=== PATIENT | male | born 1950 | race Hispanic/Latino ===

== ENCOUNTER 2018-10-08 10:00 | Inpatient (IN) | payer MEDICARE, BC | END 2018-10-14 17:00 | disposition home or self-care (01) | LOC: ED 10:00 → ERH 12:08 → ICU 13:19 ==

== ENCOUNTER 2018-10-19 09:43 | Emergency (ER) | payer MEDICARE | END 2018-10-19 11:56 | disposition home or self-care (01) | LOC: ED 09:43 ==

== ENCOUNTER 2018-11-25 13:51 | Inpatient (IN) | payer MEDICARE ==
[2018-11-25 13:52] VITALS: PULSE 143
[2018-11-25 14:12] VITALS: BMI 19.9
[2018-11-25 15:20] LABS: HEMOGLOBIN 7.7 g/dL (14.0-18.0); LYMPH # 0.5 (1.2-3.4); LYMPH % 6.6 % (22.0-35.0); MEAN CELL VOLUME 87.4 fl (80.0-105.0); MEAN CORPUSCULAR HGB CONC 30.9 g/dl (31.0-37.0); MEAN PLATELET VOLUME 7.8 fl (7.0-11.0); MONO # 0.5 (0.1-0.6); MONO % 6.6 % (1.0-6.0); RBC 2.85 10^6/uL (3.5-6.1); RED CELL DISTRIBUTION WIDTH 14.9 % (11.5-14.5); WHITE BLOOD COUNT 7.2 10^3/uL (4.5-11.0)
[2018-11-25 15:25] LABS: ALB/GLOB RATIO 0.9 (1.1-1.8); ALBUMIN 2.5 g/dL (3.0-4.8); ALT/SGPT 31 U/L (7-56); AST/SGOT 43 U/L (17-59); BLOOD UREA NITROGEN 22 mg/dL (7-21); CALCIUM 8.1 mg/dL (8.4-10.5); GFR NON-AFRICAN AMERICAN > 60
--- NOTE | 2018-11-25 15:28 | ED PDOC ---
Arrival/HPI <Dev Farley - Last Filed: 11/25/18 15:38> - General Historian: Patient - History of Present Illness Narrative History of Present Illness (Text): 11/25/18 15:23 CC: anemia HPI: 68 yo male w/ PMH of Ulcerative Colitis, Hypothyroidism, CAD, Aflutter (s/p ablation on Eliqiuis, DM2 comes to ED after blood work at PMD stated that patient had hgb of 7.8. Patient reports 8 weeks of ongoing bloody bowel movements for which he is on treatment. Patient states that the bowel movements have become less severe and with less blood but still ongoing. Patient denies recent illnesses and fevers. Patient reports that he sees blood when he wipes and visibly in the bowl but markedly less than 8 weeks ago. During these episodes, admits to 35 pound weight loss. Denies sob, dizziness, lightheadedness, chest pain, n/v, constipation or dysuria. Time/Duration: > month Symptom Onset: Sudden Quality: Aching Activities at Onset: Rest Context: Sitting <Leonard Stephen - Last Filed: 11/25/18 16:02> - General Chief Complaint: Abnormal Labs Time Seen by Provider: 11/25/18 14:23 Past Medical History - Provider Review Nursing Documentation Reviewed: Yes (o) - Infectious Disease Hx of Infectious Diseases: None - Tetanus Immunization Tetanus Immunization: Unknown - Cardiac Hx Atrial Fibrillation: Yes - Pulmonary Hx Respiratory Disorders: Yes (USED TO SMOKE CIGARETTES.PPD QUIT.) - Neurological Hx Neurological Disorder: No - HEENT Hx HEENT Disorder: Yes (TONSILLECTOMY) - Renal Hx Renal Disorder: No - Endocrine/Metabolic Hx Diabetes Mellitus Type 2: Yes Hx Hypothyroidism: Yes - Hematological/Oncological Hx Blood Transfusions: (UNKNOWN) Hx Blood Transfusion Reaction: (UNKNOWN) - Integumentary Hx Dermatological Disorder: No - Musculoskeletal/Rheumatological Hx Musculoskeletal Disorders: No Hx Falls: No - Genitourinary/Gynecological Hx Genitourinary Disorders: No - Psychiatric Hx Depression: No Hx Emotional Abuse: No Hx Physical Abuse: No Hx Substance Use: No - Surgical History Other/Comment: Ablation - Anesthesia Hx Anesthesia Reactions: No Hx Malignant Hyperthermia: No - Suicidal Assessment Feels Threatened In Home Enviroment: No <Leonard Stephen - Last Filed: 11/25/18 16:02> Family/Social History - Physician Review Nursing Documentation Reviewed: Yes Family/Social History: No Known Family HX Smoking Status: Heavy Smoker > 10 Cigarettes Daily Hx Alcohol Use: No Hx Substance Use: No Hx Substance Use Treatment: No <ZafarMadaser - Last Filed: 11/25/18 16:02> Allergies/Home Meds <Dev Farley - Last Filed: 11/25/18 15:38> <ZafarMadbekah - Last Filed: 11/25/18 16:02> Allergies/Adverse Reactions: Allergies No Known Allergies Allergy (Verified 11/25/18 14:11) Home Medications: Home Meds Medication Instructions Recorded Confirmed Levothyroxine [Synthroid] 1 tab PO DAILY 10/08/18 10/19/18 Rosuvastatin Calcium [Crestor] 1 tab PO HS 10/08/18 10/19/18 Asacol HD 800mg 800 mg PO TID 10/14/18 10/19/18 Protonix 40 mg PO DAILY 10/14/18 10/19/18 Rowasa Enema 4 gm RC DAILY 10/14/18 10/19/18 Sotalol 80 mg PO BID 10/14/18 10/19/18 Warfarin [Coumadin] 5 mg PO DAILY 10/14/18 10/19/18 Review of Systems - Review of Systems Constitutional: Fatigue, Weight Change. absent: Normal, Fevers, Night Sweats Eyes: Normal. absent: Vision Changes, Photophobia ENT: Normal. absent: Sore Throat, Rhinorrhea Respiratory: Normal. absent: SOB, Cough, Sputum, Wheezing Cardiovascular: Normal. absent: Chest Pain, Palpitations, Edema, Calf Pain, SUAREZ Gastrointestinal: Hematochezia. absent: Normal, Abdominal Pain, Stool Changes, Constipation, Nausea, Vomiting Genitourinary Male: Normal. absent: Dysuria, Frequency, Hematuria Musculoskeletal: Normal. absent: Arthralgias, Back Pain, Neck Pain Skin: Normal. absent: Rash, Pruritis, Skin Lesions Neurological: Normal, Headache. absent: Dizziness, Focal Weakness Endocrine: Normal. absent: Diaphoresis, Polyuria Psychiatric: Normal. absent: Anxiety, Depression <ZafarMadaser - Last Filed: 11/25/18 16:02> Physical Exam Vital Signs Temp Pulse Resp BP Pulse Ox 11/25/18 14:21 97.7 F 60 18 120/76 99 <MiguelitoDev - Last Filed: 11/25/18 15:38> Vital Signs Reviewed: Yes Vital Signs Temp Pulse Resp BP Pulse Ox 11/25/18 14:21 97.7 F 60 18 120/76 99 Temperature: Afebrile Blood Pressure: Normal Pulse: Regular Respiratory Rate: Normal Appearance: Positive for: Well-Appearing, Non-Toxic, Comfortable Pain Distress: None Mental Status: Positive for: Alert and Oriented X 3 - Systems Exam Head: Present: Atraumatic, Normocephalic Pupils: Present: PERRL Extroacular Muscles: Present: EOMI Conjunctiva: Present: Normal Mouth: Present: Dry Respiratory/Chest: Present: Clear to Auscultation, Good Air Exchange. No: Respiratory Distress, Decreased Breath Sounds Cardiovascular: Present: Regular Rate and Rhythm, Normal S1, S2. No: Murmurs, Tachycardic, Bradycardic Abdomen: Present: Normal Bowel Sounds. No: Tenderness, Distention Upper Extremity: Present: Normal Inspection. No: Cyanosis, Edema Lower Extremity: Present: Normal Inspection. No: Edema Neurological: Present: GCS=15, CN II-XII Intact, Speech Normal Skin: Present: Warm, Dry, Normal Color. No: Rashes Psychiatric: Present: Alert, Oriented x 3, Normal Insight, Normal Concentration <Leonard Stephen - Last Filed: 11/25/18 16:02> Medical Decision Making - Lab Interpretations Lab Results: Total Bilirubin 0.1 mg/dL (0.2-1.3) L 11/25/18 15:09 AST 43 U/L (17-59) 11/25/18 15:09 ALT 31 U/L (7-56) 11/25/18 15:09 Alkaline Phosphatase 83 U/L (38-126) 11/25/18 15:09 Total Protein 5.4 g/dL (5.8-8.3) L 11/25/18 15:09 Albumin 2.5 g/dL (3.0-4.8) L 11/25/18 15:09 Globulin 2.9 gm/dL 11/25/18 15:09 Albumin/Globulin Ratio 0.9 (1.1-1.8) L 11/25/18 15:09 - EKG Interpretation EKG Interpretation (Text): 11/25/18 15:32 Sinus Bradycardia @ 59 bpm, nml qrs, nml axis, no acute sttw abn. Interpreted by ED Physician: Yes Type: 12 lead EKG <Dev Farley - Last Filed: 11/25/18 15:38> ED Course and Treatment: 11/25/18 15:47 Impression 68 yo male w/ PMH of Ulcerative Colitis, Hypothyroidism, CAD, Aflutter (s/p ablation on Eliqiuis, DM2 comes to ED after blood work at PMD stated that patient had hgb of 7.8. Plan -CBC -CMP -EKG -CXR -Type/Screen -2 units of pRBCs Prior Visits All prior documentation and lab work reviewed prior to evaluation Progress Notes 2 units of pRBCs will tranfused Dr. Gonzalez was here who asked for patient to be put on telemetry, requested Dr. Russell and Dr. Tamez to be placed on consult Re-evaluation Time: 15:59 Reassessment Condition: Re-examined, Unchanged - Lab Interpretations I have reviewed the lab results: Yes Interpretation: Abnormal lab values <Leonard Stephen - Last Filed: 11/25/18 16:02> Disposition/Present on Arrival <Dev Farley - Last Filed: 11/25/18 15:38> - Present on Arrival Any Indicators Present on Arrival: No History of DVT/PE: No History of Uncontrolled Diabetes: No Urinary Catheter: No History of Decub. Ulcer: No History Surgical Site Infection Following: None - Disposition Have Diagnosis and Disposition been Completed?: Yes Disposition Time: 16:01 Patient Plan: Admission, Telemetry <Leonard Stephen - Last Filed: 11/25/18 16:02> - Disposition Diagnosis: Ulcerative colitis Disposition: HOSPITALIZED Condition: FAIR Discharge Instructions (ExitCare): Ulcerative Colitis (ED)
[2018-11-25 16:17] LABS: INR 1.63; PROTHROMBIN TIME 18.1 SECONDS (9.4-12.5)
--- NOTE | 2018-11-25 17:51 | RAD ---
Date of service: 11/25/2018 HISTORY: Anemia, shortness of breath. COMPARISON: 10/08/2018. FINDINGS: LUNGS: No active pulmonary disease. PLEURA: No significant pleural effusion identified, no pneumothorax apparent. CARDIOVASCULAR: No atherosclerotic calcification present Normal. OSSEOUS STRUCTURES: No significant abnormalities. VISUALIZED UPPER ABDOMEN: Normal. OTHER FINDINGS: None. IMPRESSION: No active disease. No significant interval change compared to the prior examination(s).
--- NOTE | 2018-11-25 19:33 | CARD ---
APPROVED REPORT Date of service: 11/25/2018 EKG Measurement Heart [id number] <Conclusion> Sinus bradycardia Prolonged QT Abnormal ECG
[2018-11-25] MEDS ORDERED: Insulin Lispro (humaLOG) LOW Coverage SC SCH (19:41)
[2018-11-25] MEDS: Mesalamine 800 mg DR Tab PO SCH (20:20)
[2018-11-25] MEDS: Insulin Lispro 1 UNITS/0.01 ML SC SCH (20:22)
[2018-11-25] MEDS: Insulin Reg-LOW-Coverage SC SCH (22:00)
[2018-11-25] MEDS ORDERED: Pneumococcal 23-Valent Vaccine IM ONE (22:37)
--- NOTE | 2018-11-25 23:33 | HP ---
DATE OF EXAM: 11/25/2018 HISTORY OF PRESENT ILLNESS: A 68-year-old male with a history of ulcerative colitis and anemia with referral to the emergency room because of anemia. PAST MEDICAL HISTORY: The patient has a past medical history of hypothyroid disease, insulin-dependent diabetes, paroxysmal atrial fibrillation, ulcerative colitis, melena, anemia. REVIEW WITH SYSTEMS: The 12 systems are reviewed. Pertinent findings as stated in the history and physical. ALLERGIES: HE DOES NOT ADMIT TO ANY ALLERGIES. HOME MEDICATIONS: As per the family are; mesalamine 800 mg t.i.d., Betapace 80 mg b.i.d., Eliquis 5 mg b.i.d., Feosol with meals, Lipitor 20 mg daily, prednisone 20 mg b.i.d., Protonix 40 mg daily, Rowasa enema at bedtime and Synthroid 50 mcg daily. The patient is also on insulin, the dosages are to be discussed with the patient and the family and the patient apparently has been adjusting his insulin at home. SOCIAL HISTORY: He is a nonsmoker, nondrinker, non drug user. PHYSICAL EXAMINATION VITAL SIGNS: Temperature is 97.7, pulse is 60, blood pressure is 120/76, respiratory rate is 18, oxygen sat is 99% on room air. GENERAL: He is alert and oriented x3. NECK: His neck is supple. There is no JVD. LUNGS: Clear. HEART: In S1, S2 rhythm. ABDOMEN: Soft with positive bowel sounds. EXTREMITIES: Show no evidence of edema. NEUROLOGIC: He is alert and oriented x3. LABORATORY DATA: Shows a WBC of 7.2, RBC 2.85, hemoglobin 7.7, hematocrit 24.9, platelet count is reported at 730,000. His PT is 18.1 with INR of 1.63. His chemistry shows sodium 132, potassium 4.3, chloride 91, CO2 of 34, BUN 22, creatinine is 0.8. His blood sugar was 212. His calcium is 8.1. LFTs are normal. His albumin is 2.5. His chest x-ray is reported as showing no active disease. His EKG is reported as showing a sinus bradycardia with a rate of 59. IMPRESSION: A 68-year-old male with; 1. Anemia, iron deficiency. 2. Ulcerative colitis with rectal bleeding, which is reportedly improved secondary to the addition of steroids to his regimen. 3. A history of paroxysmal atrial fibrillation status post prior cardiac ablation. 4. Hypothyroid disease. 5. Insulin-dependent diabetes. PLAN: 1. I have discussed the case with the emergency room, with the patient and his family, as well as with GI. We will request a blood transfusion. The patient to be monitored on telemetry given his cardiac history. We will monitor his blood sugars. I have asked the family to bring in their medications from home. A discussion will be held regarding the dosages of insulin that the patient is using and get a Cardiology consult as well with followup of his labs. Samantha Gonzalez MD
[2018-11-26] MEDS ORDERED: Levothyroxine 50 MCG TAB PO SCH (06:00)
[2018-11-26] MEDS ORDERED: Pantoprazole 40 mg EC Tab PO SCH (06:00)
[2018-11-26 06:16] VITALS: O2SAT 97
[2018-11-26] MEDS ORDERED: Insulin Lispro 1 UNITS/0.01 ML SC SCH (08:00)
[2018-11-26 08:19] LABS: LYMPH # 0.4 (1.2-3.4); LYMPH % 6.5 % (22.0-35.0); MEAN CELL VOLUME 87.7 fl (80.0-105.0); MEAN CORPUSCULAR HEMOGLOBIN 27.9 pg (25.0-35.0); MEAN CORPUSCULAR HGB CONC 31.8 g/dl (31.0-37.0); MEAN PLATELET VOLUME 8.1 fl (7.0-11.0); MONO # 0.7 (0.1-0.6); MONO % 11.5 % (1.0-6.0); RBC 3.51 10^6/uL (3.5-6.1); RED CELL DISTRIBUTION WIDTH 15.4 % (11.5-14.5)
[2018-11-26 08:22] LABS: HEMOGLOBIN 9.8 g/dL (14.0-18.0)
[2018-11-26] MEDS: Insulin Reg-LOW-Coverage SC SCH ×3 (08:55→17:34)
--- NOTE | 2018-11-26 09:04 | CP.PCM.CON ---
<Thomas Johnson - Last Filed: 11/26/18 19:41> History of Present Illness - History of Present Illness History of Present Illness: Thomas Johnson Internal Medicine Resident- Consult Note on Behalf of Dr. Tamez Subjective: CC: Referred to ED by PCP for Anemia in context of multiple bloody BM HPI: Patient 68 year-old male with a past medical history of ulcerative colitis, a- flutter s/p ablation on eliqus, hypothyroid, DM, and DKA who was admitted for evaluation and treatment of low hemoglobin in the setting of bloody bowel movements. The GI team was consulted for management/recommendations of the aforementioned chronic GI issues. Patient seen and examined at bedside. Admits to experiencing approximately 20 daily bloody bowel movements since previous visit. Frequency of BMs has significantly reduced in the past few days after starting prednisone. Admits to being compliant with home medications. Admits to baseline lower quadrant abdominal pain which occurs after PO intake. Denies associated nausea, vomiting, constipation, and change in caliber of the stools. Further denies fever, chills, chest pain, SOB. 12 point ROS negative except as indicated in the HPI Past medical history: Atrial flutter s/p ablation, on Eliquis BID (last 4 AM), hypothyroidism, DM, colitis, DVT Past surgical history: ablation January 2018, tonsillectomy Allergies: NKDA Social history: occasional etoh, former tobacco use, quit 4 years ago, denies illicit drug use Family history: non-contributory Medications: as per [facility] Physical Examination: - Constitutional Appears: NAD - Head Exam Head Exam: ATRAUMATIC, NORMOCEPHALIC - Eye Exam Eye Exam: EOMI. absent: Scleral icterus - ENT Exam ENT Exam: Mucous Membranes Moist - Neck Exam Neck Exam: Normal Inspection - Respiratory Exam Respiratory Exam: absent: Rales, Rhonchi, Wheezes - Cardiovascular Exam Cardiovascular Exam: +S1, +S2. absent: Gallop, Rubs - GI/Abdominal Exam GI & Abdominal Exam: Soft, Normal Bowel Sounds. absent: Distended, Tenderness - Extremities Exam Extremities Exam: no cyanosis, no clubbing - Neurological Exam Neurological Exam: Awake, alert, responds to verbal stimuli, follows commands - Skin Skin Exam: Dry, Warm Studies Reviewed: 10/11/2018 CT Abdomen and Pelvis with oral contrast- Severe grullon colitis. Overall degree and distribution of involvement-similar to that seen previously 10/17/2018 Colonoscopy- internal hemorrhoids, diffuse moderate inflammation found in the rectum and sigmoid colon 10/17/2018 Endoscopy- normal esophagus, 2cm hiatal hernia, gastritis, one papule nodule found in the stomach Assessment and Plan: Patient 68 year-old male with a past medical history of ulcerative colitis, a- flutter s/p ablation on eliqus, hypothyroid, DM, and DVT who was admitted for evaluation and treatment of bloody bowel movements. Ulcerative Colitis Anemia Normocytic- likely secondary to GI loss, appropriate response s/p 2 units Thrombocytosis A-flutter s/p ablation on eliquis Hypothyroid DM Hx of DVT - continue asacol 800mg PO TID - hold rowasa enema 4gram rectal HS until Thursday11/28/2018 - continue prednisone 20mg PO BID - continue protonix 40mg PO daily - continue ferrous sulfate - start hydrocortisone enema on 11/28/2018 - recommend holding eliquis- was informed by nursing staff that Dr. Jeffrey was in agreement of holding eliquis at this time - maintain hgb >8 - recommend 2 large bore peripheral IV access Patient case discussed with and plan approved by attending physician, Dr. Tamez. Past Patient History - Infectious Disease Hx of Infectious Diseases: None - Tetanus Immunizations Tetanus Immunization: Unknown - Past Social History Smoking Status: Former Smoker - CARDIAC Hx Cardiac Disorders: Yes Hx Cardia Arrhythmia: Yes (CARDIAC ABLATION ,AFIB WITH RVR 10-08-18) Hx Hypercholesterolemia: Yes - PULMONARY Hx Respiratory Disorders: Yes (USED TO SMOKE CIGARETTES.PPD QUIT.) - NEUROLOGICAL Hx Neurological Disorder: No - HEENT Hx HEENT Problems: Yes (TONSILLECTOMY) - RENAL Hx Chronic Kidney Disease: No - ENDOCRINE/METABOLIC Hx Endocrine Disorders: Yes Hx Diabetes Mellitus Type 2: Yes Hx Hypothyroidism: Yes - HEMATOLOGICAL/ONCOLOGICAL Hx Blood Disorders: Yes Hx Anemia: Yes (BLOOD TRANSFUSION) Hx Shingles: Yes - INTEGUMENTARY Hx Dermatological Problems: No - MUSCULOSKELETAL/RHEUMATOLOGICAL Hx Musculoskeletal Disorders: No Hx Falls: No - GASTROINTESTINAL Hx Gastrointestinal Disorders: Yes (ULCERATIVE COLITIS) Hx Diverticulitis: Yes - GENITOURINARY/GYNECOLOGICAL Hx Genitourinary Disorders: No - PSYCHIATRIC Hx Psychophysiologic Disorder: No Hx Depression: No Hx Emotional Abuse: No Hx Physical Abuse: No Hx Substance Use: No - SURGICAL HISTORY Hx Surgeries: Yes Other/Comment: Ablation - ANESTHESIA Hx Anesthesia Reactions: No Hx Malignant Hyperthermia: No Meds Allergies/Adverse Reactions: Allergies Allergy/AdvReac Type Severity Reaction Status Date / Time No Known Allergies Allergy Verified 11/25/18 17:55 - Medications Medications: Current Medications Apixaban (Eliquis) 5 mg PO BID [facility]; Protocol Last Admin: 11/25/18 20:22 Dose: 5 mg Ferrous Sulfate (Feosol) 324 mg PO WM [facility] Home Med (Home Med) 1 unit PO DAILY [facility] Insulin Detemir (Levemir) 12 unit SC BID [facility] Insulin Human Lispro (Humalog) 8 units SC BRK [facility] Insulin Human Lispro (Humalog) 6 units SC ACLD [facility] Last Admin: 11/25/18 20:22 Dose: 6 units Insulin Human Regular (Humulin R Low) 0 units SC ACHS [facility]; Protocol Last Admin: 11/25/18 22:00 Dose: Not Given Levothyroxine Sodium (Synthroid) 50 mcg PO 0600 [facility] Last Admin: 11/26/18 06:30 Dose: 50 mcg Mesalamine (Asacol Hd 800mg) 800 mg PO TID [facility] Last Admin: 11/25/18 20:20 Dose: 800 mg Mesalamine (Rowasa Enema) 4 gm RC HS [facility] Last Admin: 11/25/18 21:38 Dose: Not Given Pantoprazole Sodium (Protonix Ec Tab) 40 mg PO 0600 [facility] Last Admin: 11/26/18 06:29 Dose: 40 mg Prednisone (Prednisone Tab) 20 mg PO BID [facility] Last Admin: 11/25/18 20:22 Dose: 20 mg Sotalol HCl (Betapace) 80 mg PO BID [facility] Last Admin: 11/25/18 20:20 Dose: 80 mg Results - Vital Signs Recent Vital Signs: Last Vital Signs Temp 97.5 F L 11/26/18 06:00 Pulse 52 L 11/26/18 06:00 Resp 18 11/26/18 06:00 BP 118/64 11/26/18 06:00 Pulse Ox 97 11/26/18 06:00 - Labs Result Diagrams: 11/26/18 07:00 11/25/18 15:09 Labs: Laboratory Results - last 24 hr 11/25/18 11/25/18 11/25/18 15:09 15:09 16:03 WBC 7.2 RBC 2.85 L Hgb 7.7 L D Hct 24.9 L MCV 87.4 MCH 27.0 MCHC 30.9 L RDW 14.9 H Plt Count 730 H* D MPV 7.8 Neut % (Auto) 86.8 H Lymph % (Auto) 6.6 L Towner % (Auto) 6.6 H Eos % (Auto) 0.0 L Baso % (Auto) 0.0 Lymph # (Auto) 0.5 L Towner # (Auto) 0.5 Eos # (Auto) 0.0 Baso # (Auto) 0.00 Absolute Neuts (auto) 6.27 PT INR Sodium 132 Potassium 4.3 Chloride 91 L Carbon Dioxide 34 H Anion Gap 11 BUN 22 H Creatinine 0.8 Est GFR ( Amer) > 60 Est GFR (Non-Af Amer) > 60 POC Glucose (mg/dL) Random Glucose 212 H Calcium 8.1 L Total Bilirubin 0.1 L AST 43 ALT 31 Alkaline Phosphatase 83 Total Protein 5.4 L Albumin 2.5 L Globulin 2.9 Albumin/Globulin Ratio 0.9 L Blood Type O POSITIVE Antibody Screen Negative Crossmatch See Detail BBK History Checked Patient has bt 11/25/18 11/25/18 11/25/18 16:03 17:38 21:29 WBC RBC Hgb Hct MCV MCH MCHC RDW Plt Count MPV Neut % (Auto) Lymph % (Auto) Towner % (Auto) Eos % (Auto) Baso % (Auto) Lymph # (Auto) Towner # (Auto) Eos # (Auto) Baso # (Auto) Absolute Neuts (auto) PT 18.1 H INR 1.63 Sodium Potassium Chloride Carbon Dioxide Anion Gap BUN Creatinine Est GFR ( Amer) Est GFR (Non-Af Amer) POC Glucose (mg/dL) 255 H 294 H Random Glucose Calcium Total Bilirubin AST ALT Alkaline Phosphatase Total Protein Albumin Globulin Albumin/Globulin Ratio Blood Type Antibody Screen Crossmatch BBK History Checked 11/26/18 11/26/18 07:00 07:23 WBC 6.0 RBC 3.51 Hgb 9.8 L D Hct 30.8 L MCV 87.7 MCH 27.9 MCHC 31.8 RDW 15.4 H Plt Count 652 H MPV 8.1 Neut % (Auto) 82.0 H Lymph % (Auto) 6.5 L Towner % (Auto) 11.5 H Eos % (Auto) 0.0 L Baso % (Auto) 0.0 Lymph # (Auto) 0.4 L Towner # (Auto) 0.7 H Eos # (Auto) 0.0 Baso # (Auto) 0.00 Absolute Neuts (auto) 4.94 PT INR Sodium Potassium Chloride Carbon Dioxide Anion Gap BUN Creatinine Est GFR ( Amer) Est GFR (Non-Af Amer) POC Glucose (mg/dL) 194 H Random Glucose Calcium Total Bilirubin AST ALT Alkaline Phosphatase Total Protein Albumin Globulin Albumin/Globulin Ratio Blood Type Antibody Screen Crossmatch BBK History Checked <Adrianna Tamez V - Last Filed: 11/27/18 00:04> Results - Vital Signs Recent Vital Signs: Last Vital Signs Temp 97.5 F L 11/26/18 18:00 Pulse 56 L 11/26/18 18:00 Resp 20 11/26/18 18:00 BP 105/69 11/26/18 18:00 Pulse Ox 97 11/26/18 06:00 - Labs Result Diagrams: 11/26/18 07:00 11/25/18 15:09 Labs: Laboratory Results - last 24 hr 11/25/18 11/25/18 11/26/18 16:03 21:29 07:00 WBC 6.0 RBC 3.51 Hgb 9.8 L D Hct 30.8 L MCV 87.7 MCH 27.9 MCHC 31.8 RDW 15.4 H Plt Count 652 H MPV 8.1 Neut % (Auto) 82.0 H Lymph % (Auto) 6.5 L Towner % (Auto) 11.5 H Eos % (Auto) 0.0 L Baso % (Auto) 0.0 Lymph # (Auto) 0.4 L Towner # (Auto) 0.7 H Eos # (Auto) 0.0 Baso # (Auto) 0.00 Absolute Neuts (auto) 4.94 POC Glucose (mg/dL) 294 H Crossmatch See Detail 11/26/18 11/26/18 11/26/18 07:23 12:12 16:35 WBC RBC Hgb Hct MCV MCH MCHC RDW Plt Count MPV Neut % (Auto) Lymph % (Auto) Towner % (Auto) Eos % (Auto) Baso % (Auto) Lymph # (Auto) Towner # (Auto) Eos # (Auto) Baso # (Auto) Absolute Neuts (auto) POC Glucose (mg/dL) 194 H 228 H 121 H Crossmatch Attending/Attestation - Attestation I have personally seen and examined this patient.: Yes I have fully participated in the care of the patient.: Yes I have reviewed all pertinent clinical information: Yes Notes (Text): This is an addendum to the GI progress report dictated by the resident. The patient was seen and evaluated along with resident earlier. The plan is to continue prednisone 40 mg daily (20 mg divided doses) Patient says the frequency of diarrhea has improved. But still has bloody bowel movements. Discussed with the Dr. Gonzalez. Evaluated by the consumer banker plan is to hold off Eliquis that day his bleeding subsides C. Continue was an [place] in a.m. We will start the patient on cortisone enema in evening. Patient has significant bleeding ID. Once the bleeding episode decreases to hemoglobin remained stable may be reasonable to restart on Eliquis. Discussed with Dr. Gonzalez earlier 11/27/18 00:00 11/27/18 00:01
[2018-11-26] MEDS ORDERED: ROSUVASTATIN 5 MG PO SCH (10:00)
[2018-11-26] MEDS: Mesalamine 800 mg DR Tab PO SCH ×3 (10:10→17:36)
[2018-11-26] MEDS: Insulin Detemir 100 units/ml Vial (Levemir) SC SCH ×2 (10:15→17:33)
[2018-11-26] MEDS: Insulin Lispro 1 UNITS/0.01 ML SC SCH ×2 (14:22→17:34)
[2018-11-26 17:37] VITALS: BP 105/69; PULSE 56
[2018-11-26 18:03] VITALS: RESP 20; TEMP 97.5
--- NOTE | 2018-11-27 03:49 | CON ---
DATE: 11/26/2018 REQUESTING PHYSICIAN: Dr. Gonzalez. REASON FOR CONSULTATION: Paroxysmal atrial fibrillation, recurrent anemia. HISTORY OF PRESENT ILLNESS: This is a 68-year-old man known to me from a prior admission with atrial flutter and atrial fibrillation, who has had several recurrent episodes over the past several years. He has been placed on sotalol and Eliquis. He has had no symptoms of sustained dysrhythmias over the past several months. He also has a history of ulcerative colitis which is fairly extensive based upon his colonoscopy and has intermittent frequent rectal bleeding. He has had a progressive anemia and was admitted for a worsening dyspnea and severe anemia. Transfusion was performed. PAST MEDICAL HISTORY: His past history is notable for the problems mentioned above. He does have a history of diabetes mellitus, hypothyroidism. MEDICATIONS: His medications at home include sotalol 80 mg b.i.d., Eliquis 5 mg b.i.d., iron supplements, Synthroid 50 mcg daily, prednisone 20 mg b.i.d., Lipitor 20 mg daily, and mesalamine 800 mg t.i.d. He is also on insulin at home. ALLERGIES: NONE. SOCIAL HISTORY: He does not smoke or drink. He is , lives with his . 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 FAMILY HISTORY: Both parents are alive with coronary artery disease in their later years, in their 70s and 80s. There is no family history of premature heart disease. REVIEW OF SYSTEMS: A 12-point review of systems is otherwise unremarkable. He has had no recent chest pain. PHYSICAL EXAMINATION: GENERAL: He is a thin, middle-aged man. VITAL SIGNS: His blood pressure is 110/60 with a pulse of 60, in sinus; respirations are 14; he is afebrile. HEENT: Head normocephalic, atraumatic. NECK: Supple. No JVD noted. CHEST: Few scattered rhonchi heard. HEART: PMI normal position. No pathological murmurs or gallops noted. ABDOMEN: Soft and nontender. Normoactive bowel sounds. EXTREMITIES: No clubbing, cyanosis, or edema. SKIN: Warm and dry. PSYCHIATRIC: Normal mood and affect. NEUROLOGIC: Alert, oriented x3. No gross motor or sensory deficits appreciable. DIAGNOSTIC DATA: White count 7.2, hemoglobin and hematocrit 7.7 and 24.9. After transfusion, the hemoglobin has risen to 9.8. Platelet count 730,000. PT/INR 18.1 and 1.63. Potassium 4.3, BUN and creatinine 22 and 0.8. Electrocardiogram reveals sinus bradycardia with QT prolongation and nonspecific ST-T abnormalities. Corrected QT is 530 milliseconds. Chest x-ray reveals a normal cardiac silhouette with clear lung corbett. IMPRESSION: 1. Persistent gastrointestinal bleeding secondary to severe ulcerative colitis. 2. Bleeding likely exacerbated by anticoagulant use. 3. Paroxysmal atrial fibrillation and atrial flutter, currently in sinus rhythm with no recent symptoms suggestive of frequent recurrence. 4. Diabetes mellitus. 5. QT prolongation. RECOMMENDATIONS: 1. His current medications will continue for now. However, his Eliquis will be discontinued as the risk-benefit ratio appears to outweigh its use at this time. If he has frequent recurrences of atrial fibrillation, which would increase his risk of thromboembolic events, an alternative antiarrhythmic therapy can be considered. 2. Sotalol will be continued at its current dose despite mild QT prolongation as it has been effective in maintaining a sinus rhythm. Maintenance of hemoglobin of at least a 9 will be preferable. Continued close outpatient followup will be arranged. Thank you for this consultation. Tam Russell MD
== END 2018-11-26 18:23 | disposition home or self-care (01) | DRG 812 ==
LOC: ED 13:51 → ERH 15:29 → 2RSO 17:19
PROVIDERS: ADMIT Internal Medicine; ATTEND Internal Medicine
PROC: 30233N1 Transfusion of Nonautologous Red Blood Cells into Peripheral Vein, Percutaneous Approach (ICD-10-PCS; principal; 2018-11-25)
DX: D50.9 Iron deficiency anemia, unspecified (principal); K51.911 Ulcerative colitis, unspecified with rectal bleeding; I48.0 Paroxysmal atrial fibrillation; E11.9 Type 2 diabetes mellitus without complications; I25.10 Atherosclerotic heart disease of native coronary artery without angina pectoris; E78.00 Pure hypercholesterolemia, unspecified; E03.9 Hypothyroidism, unspecified; Z79.4 Long term (current) use of insulin; Z86.718 Personal history of other venous thrombosis and embolism; Z79.01 Long term (current) use of anticoagulants; Z87.891 Personal history of nicotine dependence; Z79.890 Hormone replacement therapy